=== PATIENT | female | born 1975 | race Caucasian/White ===

== ENCOUNTER 2022-05-28 15:12 | Emergency (ER) | payer OTHER, SELFPAY ==
--- NOTE | ~2022-05-28 | XR_ITS ---
EXAMINATION: XR knee RT 3V DATE: 05/28/2022 15:42 INDICATION: Right knee pain. Right knee injury. TECHNIQUE: 3 views of right knee were obtained. COMPARISON: None. FINDINGS: Bone alignment is normal. No fracture. There is mild osteoarthritis of lateral and patellof emoral compartments characterized by tiny osteophytes. No joint space narrowing. No knee joint effusi on. IMPRESSION: 1. Mild right knee osteoarthritis. Reviewed, dictated and finalized at location A.
--- NOTE | 2022-05-28 15:18 | ED.LOWEXIN ---
HPI - Extremity Injury (Lower) General Chief Complaint: Extremity Problem,Nontraumatic Stated Complaint: rt knee injury Time Seen by Provider: 05/28/22 15:28 Source: patient and RN notes reviewed Mode of arrival: ambulatory Limitations: no limitations History of Present Illness HPI Narrative: 47-year-old female presents to the [facility] with complaints of right knee pain. Patient states that she was kneeling at work a1-2 weeks ago when she started having discomfort in the patella of the right knee. She was getting out of the shower today when she felt a sharp pain in the patella. No direct trauma. Minor swelling noted without erythema or bruising. Related Data Home Medications Medication Instructions Recorded Confirmed amlodipine 5 mg tablet 5 mg PO DAILY 05/28/22 05/28/22 bupropion HCl 150 mg 24 hr tablet, 150 mg PO DAILY 05/28/22 05/28/22 extended release sertraline 100 mg tablet 100 mg PO HS 05/28/22 05/28/22 Allergies Allergy/AdvReac Type Severity Reaction Status Date / Time No Known Allergies Allergy Verified 05/28/22 15:24 Review of Systems Review of Systems: All systems reviewed & are unremarkable except as noted in HPI and below Constitutional: Constitutional: Reports no additional constitutional complaints, Denies chills and Denies fever(s) Eyes: Eyes: Reports no additional eye complaints ENT: Reports system reviewed and no additional complaints, except as documented Cardiovascular: Cardiovascular: Reports no additional cardiovascular complaints Respiratory: Respiratory: Reports no additional respiratory complaints Gastrointestinal: Gastrointestinal: Reports no additional gastrointestinal complaints Musculoskeletal: Musculoskeletal: Reports as per HPI and Reports arthralgias (Right knee) Integumentary/Breasts: Skin/Breast: Reports system reviewed and no additional complaints, except as docu Neurologic: Reports system reviewed and no additional complaints, except as documented Psychiatric: Psychiatric: Reports no additional psychiatric complaints Allergic/Immunologic: Allergic/Immunologic: Reports no additional allergic/immunologic complaints PMFSH Past Medical History Medical History Anxiety and depression History of high blood pressure Comments At the time of my signature, I reviewed and agree with the nursing past medical, surgical, social, and family history. There is no relevant family history pertinent to the patient complaint. Exam Const: General: healthy appearing, no acute distress and alert Nutritional Appearance: well nourished Orientation/consciousness: patient oriented x3 Limitations: no limitations HENMT: Head: normal to inspection Ears: external ears normal Eyes: General: appearance normal, both eyes and all related structures Pupils: Equal, round and reactive pupils present Neck: Neck: normal visual inspection, no lymphadenopathy and no meningeal signs Chest: Chest palpation & inspection: normal inspection of the chest Resp: Effort & Inspection: normal respiratory effort and no use of accessory muscles Auscultation: clear to auscultation bilaterally, no crackles, no rales, no rhonchi and no wheezes Cardio: Rate: regular rate Rhythm: regular rhythm GI: GI Palp: Yes Soft to palpation and No Tenderness to palpation present (GI) Back/Spine/Pelvis: Cervical Spine: normal cervical lordosis Thoracic/Lumbar Spine: thoracic and lumbar spine normal to inspection Skin: General skin exam: normal color Rashes: no rashes Wounds: no wounds Neuro: General: patient oriented x3, moves all extremities, no meningeal signs and no focal motor deficits Cranial nerves: Yes Equal, round and reactive pupils present Speech: normal speech Gait exam (Neuro): Normal gait present Extrem: General: normal to inspection, full ROM and capillary refill normal Right lower extremity: normal capillary refill and knee (No pain except o
[2022-05-28 15:28] VITALS: BP 165/102; PULSE 100; RESP 18; TEMP 37.3; O2SAT 100
== END 2022-05-28 15:59 | disposition home or self-care (01) ==
PROVIDERS: Emergency Provider Nurse Practitioner
DX: S80.01XA Contusion of right knee, initial encounter (principal); T14.90XA Injury, unspecified, initial encounter; M17.11 Unilateral primary osteoarthritis, right knee; F41.8 Other specified anxiety disorders
CPT/HCPCS: 73562; 99213; G0463

== ENCOUNTER 2022-09-14 20:36 | Emergency (ER) | payer OTHER, SELFPAY ==
[2022-09-14 20:40] VITALS: BP 156/90; PULSE 103; RESP 14; TEMP 37; O2SAT 100
--- NOTE | 2022-09-14 22:40 | PC.NURSE ---
Puncture wound to right thigh irrigated with 210ml normal saline
--- NOTE | 2022-09-14 22:47 | ED.ANIMALBIT ---
HPI - Animal Bite General Chief Complaint: Animal Bite Stated Complaint: dog bite Time Seen by Provider: 09/14/22 21:43 Source: patient, family and RN notes reviewed Mode of arrival: ambulatory Limitations: no limitations History of Present Illness HPI narrative: This is a 47-year-old female that presents to the emergency department after a dog bite. Reports she was breaking up her dogs fighting. They are up-to-date on their vaccinations. She has not had a tetanus vaccination in the last 5 years. Reports bleeding and pain to the right thigh with a small puncture wound. Denies decreased range of motion or numbness. Related Data Home Medications Medication Instructions Recorded Confirmed amlodipine 5 mg tablet 5 mg PO DAILY 05/28/22 05/28/22 bupropion HCl 150 mg 24 hr tablet, 150 mg PO DAILY 05/28/22 05/28/22 extended release sertraline 100 mg tablet 100 mg PO HS 05/28/22 05/28/22 Allergies Allergy/AdvReac Type Severity Reaction Status Date / Time No Known Allergies Allergy Verified 05/28/22 15:24 Review of Systems Review of Systems: CONSTITUTIONAL: Denies fever SKIN: Reports laceration NEUROLOGIC: Denies numbness All systems reviewed & are unremarkable except as noted in HPI and below PMFSH Past Medical History Medical History Anxiety and depression History of high blood pressure Social History Social History (Updated 09/14/22 @ 22:53 by Michaelle Marquez PA-C) Smoking status: Never smoker Exam Narrative: GENERAL: Well-appearing, well-nourished, and in no acute distress. HEAD: Normocephalic, atraumatic. EYES: EOMI. EXTREMITIES: Normal range of motion. No edema. 1cm puncture wound to the right anterior thigh. Normal DP pulse SKIN: Warm, dry, no rash. NEURO: No focal deficits. Alert and oriented x3. PSYCH: Normal mood and affect Course Course Emergency Course: Patient and family agree with plan of care Vital Signs Vital signs: Vital Signs Temperature 98.6 F 09/14/22 20:40 Pulse Rate 103 H 09/14/22 20:40 Respiratory Rate 14 09/14/22 20:40 Blood Pressure 156/90 H 09/14/22 20:40 Pulse Oximetry 100 09/14/22 20:40 Oxygen Delivery Room Air 09/14/22 20:40 Temperature 98.6 F 09/14/22 20:40 Pulse Rate 103 H 09/14/22 20:40 Respiratory Rate 14 09/14/22 20:40 Blood Pressure 156/90 H 09/14/22 20:40 Pulse Oximetry 100 09/14/22 20:40 Oxygen Delivery Room Air 09/14/22 20:40 Procedures Laceration Laceration 1: Date: 09/14/22 Time: 22:56 Site: lower extremity Side (If applicable): right Size (cm): 1 Description: linear Pre-repair: irrigated extensively ====== Skin Level ====== ====== Subcutaneous Layer ====== ====== Muscle Layer ====== ====== Tendon Layer ====== Dressing: Wound irrigated and covered with antibiotic ointment and a bandage MDM - Animal Bite MDM Narrative Medical decision making narrative: Patient presents to the emergency department for a dog bite sustained just prior to arrival. She is neurovascularly intact. Small puncture wound noted to the thigh. Patient's dog is up-to-date on its vaccinations. Patient was updated on her tetanus vaccine. Her wound was irrigated and covered with antibiotic ointment and a bandage. She was educated on wound care. Will be started on prophylactic antibiotic. She was given warnings to return to the ER Differential Diagnosis Differential diagnosis: Likely dog bite and other (abrasion, contusion) Critical Care Time Critical Care Time Critical Care Time: No Discharge Plan Discharge Clinical Impression: Dog bite Qualifiers: Encounter type: initial encounter Qualified Code(s): W54.0XXA - Bitten by dog, initial encounter Patient Disposition: Home, Self-Care Condition: Stable Instructions: Antibiotic Form, Animal Bite (ED) Additional Instructions: Retur
[2022-09-14] MEDS: AMOXICILLIN/CLAVULANATE K 875-125 MG TAB 1 TABLET PO (22:55)
[2022-09-14] MEDS: TETANUS,DIPHTHERIA,AC PERTUSSIS ADULT (0.5 ML) BOOSTRIX IM (22:55)
== END 2022-09-14 22:59 | disposition home or self-care (01) ==
PROVIDERS: Emergency Provider Physician Assistant
DX: S71.151A Open bite, right thigh, initial encounter (principal); Z23 Encounter for immunization; F41.9 Anxiety disorder, unspecified; F32.A Depression, unspecified; W54.0XXA Bitten by dog, initial encounter
CPT/HCPCS: 90471; 90715; 99283; A9270